=== PATIENT | female | born 1940 | race Caucasian/White ===

== ENCOUNTER → 2021-01-04 | Outpatient (CLI) | payer MEDICARE | LOC: M.MRI 12:34 | PROVIDERS: ATTEND Orthopaedic Surgery | DX: M17.12 Unilateral primary osteoarthritis, left knee (principal); M94.262 Chondromalacia, left knee; R60.0 Localized edema; M25.462 Effusion, left knee ==

== ENCOUNTER → 2021-01-24 | Outpatient (CLI) | payer MEDICARE ==
[~2021-01-24] MED LIST: MAPAP500 MG PO; NEURONTIN 400M400 M2 PO; PROTONIX40 M2 PO; TRAMADOL 50 MG50 MG PO; VITAMIN B12-FO1 EAC1 PO; XARELTO20 MG PO
[2021-01-24 16:49] LABS: HEMATOCRIT 41.2 % (37.0-47.0); HEMOGLOBIN 13.3 gm/dL (12.0-15.0); MCH 29.2 pg (26.0-34.0); MCHC 32.4 g/dL (28.0-37.0); MCV 90.2 fL (80.0-100.0); RBC 4.56 mil/uL (4.20-5.00); RDW-CV 15.8 % (10.5-14.5); WBC 8.8 thou/uL (4.0-11.0)
[2021-01-24 16:54] LABS: URINE BILIRUBIN NEGATIVE (Negative); URINE BLOOD NEGATIVE (Negative); URINE CLARITY CLEAR; URINE COLOR YELLOW; URINE GLUCOSE-RANDOM NEGATIVE (Negative); URINE KETONES NEGATIVE (Negative); URINE LEUKOCYTES-REFLEX TRACE (Negative); URINE PROTEIN NEGATIVE (Negative); URINE UROBILINOGEN 0.2 E.U./dl (0.2-1.0)
[2021-01-24 16:57] LABS: URINE NITRITE-REFLEX POSITIVE (Negative)
[2021-01-24 17:00] LABS: BACTERIA-REFLEX >30 Many /HPF (None Seen); MUCUS None Seen strn/LPF (None Seen); SQUAMOUS 0-3 Few /LPF (0-3); URINE WBC-REFLEX 6-15 Few /HPF (0-5); WBC CLUMPS Few (None Seen)
[2021-01-24 17:01] LABS: ALBUMIN 3.8 g/dL (3.4-5.0); CREATININE 1.2 mg/dL (0.6-1.3); POTASSIUM 4.4 mmol/L (3.5-5.1); TOTAL BILIRUBIN 0.4 mg/dL (<0.1-1.0)
[2021-01-24 17:01] LABS: CASTS None Seen /LPF (None Seen); CRYSTALS None Seen /LPF (None Seen); URINE RBC None Seen /HPF (0-2)
[2021-01-24 17:05] LABS: PROTIME 11.1 Seconds (9.20-11.50)
--- NOTE | 2021-01-25 12:45 | EKG ---
[place] [address] ELECTROCARDIOGRAM REPORT Name: CLAUDINE CARRILLO Room: [facility]#: [id number] Admission: 01/24/21 Attend Phys: Bryan Harris, Discharge: Date of : 36 Date of Service: 01/24/21 1626 Report #: [id number] THIS REPORT FOR: //name// [facility] Test Date: 2021-01-24 Test Time: 16:26:35 Pat Name: CLAUDINE CARRILLO Department: Room: Gender: [place]: [place] : 1940 Requested By: Bryan Harris Order Number: [id number] Reading MD: Jay Santo Measurements Intervals [place] Rate: 60 P: 70 LA: 184 QRS: -53 QRSD: 123 T: 7 QT: 434 QTc: 434 Interpretive Statements Sinus rhythm Atrial premature complex Nonspecific IVCD with LAD Left ventricular hypertrophy Anterior Q waves, possibly due to LVH No previous ECG available for comparison Electronically Signed On 01-25-2021 12:45:10 CDT by Jay Santo [email or web address] <ELECTRONICALLY SIGNED> By: Jay Santo MD, [facility] 01/25/21 1245 1626 1626 Jay Santo MD, [facility] /EPI
== END ==
LOC: M.LAB 01-23 12:10
PROVIDERS: ATTEND Orthopaedic Surgery
DX: Z01.812 Encounter for preprocedural laboratory examination (principal); Z20.822 Contact with and (suspected) exposure to COVID-19; M17.12 Unilateral primary osteoarthritis, left knee; I49.9 Cardiac arrhythmia, unspecified

== ENCOUNTER 2021-01-30 06:52 | Inpatient (IN) | payer MEDICARE ==
[~2021-01-30] VITALS: Ht 172.7 cm; Wt 88.5 kg
[2021-01-30 08:04] VITALS: BP 155/60
[2021-01-30 16:31] VITALS: BP 138/71
--- NOTE | 2021-01-30 16:51 | NUR ---
PT A&OX4 VSS. PT ARRIVED ON UNIT APPROX 1140 PT ON 3L O2 BY NC WITH CONTINUOUS PULSE OX POST-OP. NEGRON CATHETER PLACED WHILE PT SEDATED IN OR, ORDERS FROM PHYSICIAN TO LEAVE NEGRON IN PLACE UNTIL 02/21. DRESSING TO L KNEE C/D/I. POLAR PACK IN PLACE. PT STATES THINGS ARE GOING MUCH BETTER THAN SHE EXPECTED. PAIN IS MANAGED. PT DENIES N/V. FAMILY UPDATED AT BEDSIDE. PT RESTS IN BED WITH CALL LIGHT IN REACH, WILL CONTINUE TO MONITOR.
[2021-01-30 19:53] VITALS: BP 121/53
[2021-01-31] VITALS (8 sets, daily range): BP systolic 120–191; BP diastolic 62–82
[2021-01-31 03:53] LABS: CREATININE 1.3 mg/dL (0.6-1.3); POTASSIUM 4.4 mmol/L (3.5-5.1)
[2021-01-31 04:43] LABS: HEMATOCRIT 34.8 % (37.0-47.0); HEMOGLOBIN 11.5 gm/dL (12.0-15.0); MCHC 33.1 g/dL (28.0-37.0); MCV 90.7 fL (80.0-100.0); MPV 7.5 fl. (7.2-11.1); RBC 3.83 mil/uL (4.20-5.00); RDW-CV 15.7 % (10.5-14.5)
--- NOTE | 2021-01-31 04:59 | NUR ---
PT USED CPM AT BEGINNING OF SHIFT. SHE NEVER ONCE REQUESTED ANY PAIN MEDICATION. DOING VERY WELL WITH RECOVERY. RECEIVED MEDS/FLUIDS SCHEDULED. SLEPT THROUGH THE NIGHT WELL, NEGRON CLEAR YELLOW OUTPUT. ALERT AND ORIENTED, 3L-NC.
--- NOTE | 2021-01-31 10:00 | NUR ---
PT STATES SHE HAS NOT HAD A BOWEL MOVEMENT IN 2 DAYS. ABDOMEN IS SOFT. BOWEL SOUNDS PRESENT. PT STATES SHE IS NOT PASSING FLATUS YET. ENCOURAGED FLUIDS. OFFERED PRN MEDICATION TO AID WITH BOWEL MOVEMENT. STATES SHE DOES NOT WANT TO TAKE THAT MEDICATION AT THIS TIME. DOES NOT WANT TO "HAVE TO RUN TO THE BATHROOM" OR HAVE LOOSE STOOLS. WILL CONTINUE TO MONITOR.
--- NOTE | 2021-01-31 11:46 | NUR ---
Pt is A&O. Resides at home alone. Has a walker that she can use for mobility. Supportive niece and sister. No hx of HH or SNF. Plan is for Pt [place] [facility] [place] [facility] [place], CM faxed initial referral, await therapy evals and will fax. Anticipate dc tomorrow. Updated niece
--- NOTE | 2021-01-31 12:15 | NUR ---
HEMAVAC REMOVED FROM LEFT LEG. MULIPLE ABD PADS PLACED. PRESSURE HELD FOR 5 MINUTES. DRAIN TUBE CAME OUT INTACT. BRUISE AT SITE NOTED. PT INFORMED TO ALSO HELP HOLD PRESSURE AND BLEEDING TIME COULD BE PROLONGED DUE TO ANTICOAGULANTS. STATES UNDERSTANDING. WILL CONTINUE TO MONITOR.
--- NOTE | 2021-01-31 17:12 | NUR ---
PT ALERT AND ORIENTED. STATES SHE DOESN'T HAVE MUCH SHORT TERM MEMORY SHE USED TO AND CAN FORGET THINGS EASILY. PT HAS SCOPOLOMINE PATCH BEHIND LEFT EAR. PT WALKED TO THE DOOR WITH PHYSICAL THERAPY. PT ALSO WORKED WITH OT. PT NEEDS 2 PERSON STANDBY ASSIST WITH GAIT BELT. PT NEEDS MORE ASSISTANCE IN THE AM. REPORTS SHE IS WEAKER IN THE AM. PT GIVEN PRN BP MEDICATION THIS AM. VSS. PT HAD A VISITOR TODAY AND WAS TALKING ON HER PHONE. LEFT KNEE DRESSING C/D/I FROM HEMAVAC REMOVAL. IV REMAINS S/L. PT GIVEN PRN ZOFRAN. NO EMESIS NOTED. PT TOLERATING PO INTAKE WELL. PT SAT UP IN CHAIR MOST OF THE DAY. POLAR PACK REMAINS IN PLACE. PT REPORTS CONSTAND PAIN IN LEFT KNEE. BLOCK HAS WORN OFF AND STATES SHE IS FEELING EVERYTHING. PT REPORTS PAIN GETS UP TO A 10 WHEN MOVING. WILL CONTINUE TO MONITOR.
[2021-02-01 04:24] LABS: HEMATOCRIT 33.4 % (37.0-47.0); HEMOGLOBIN 11.3 gm/dL (12.0-15.0); MCH 30.9 pg (26.0-34.0); MPV 7.5 fl. (7.2-11.1); RBC 3.67 mil/uL (4.20-5.00); RDW-CV 15.6 % (10.5-14.5); WBC 9.4 thou/uL (4.0-11.0)
[2021-02-01 04:32] LABS: CALCIUM 8.5 mg/dL (8.5-10.1); CREATININE 1.2 mg/dL (0.6-1.3); POTASSIUM 4.7 mmol/L (3.5-5.1)
--- NOTE | 2021-02-01 05:18 | NUR ---
PT A&O, FORGETFUL AT TIMES. VSS ON RA. MEDS GIVEN ORDERED. PT UP WITH MODERATE ASSIST. PAIN MANAGED WITH TRAMADOL AND OXY IR. DRESSING TO LT KNEE INTACT. NEGRON IN PLACE. CALL LIGHT WITHIN REACH. BED ALARM ON FOR SAFETY. WILL CONTINUE TO MONITOR.
[2021-02-01 07:10] VITALS: BP 137/63
--- NOTE | 2021-02-01 12:41 | NUR ---
Await [facility] decision to accept today, vs tomorrow. Therapies to see. Monitor pain control.
[2021-02-01 15:25] VITALS: BP 111/46
--- NOTE | 2021-02-01 18:24 | NUR ---
PT ALERT AND ORIENTED, BUT FORGETFUL. PT HAD MULTIPLE VISITORS TODAY. REINFORCED EDUCATION ABOUT D/C TOMORROW, PLAN OF CARE, AND PAIN MANAGEMENT. PT WORKED WITH THERAPY TODAY. WALKEED TO THE DOOR WITH GAIT BELT AND WALKER. IS USE ENCOURAGED. PT REPORTS THIS EVENING PAIN HAS BEEN BETTER MANAGED AND IS LESS SITTING IN THE CHAIR. FALL PRECAUTIONS REMAIN IN PLACE. WILL CONTINUE TO MONITOR. TRANSPORTATION SET UP FOR TOMORROW @ 11 AM TO [facility].
[2021-02-01 19:37] VITALS: BP 115/52
[2021-02-01 23:50] VITALS: BP 137/64
[2021-02-02 03:56] VITALS: BP 108/45
--- NOTE | 2021-02-02 04:07 | NUR ---
PATIENT HAS REMAINED ALERT AND ORIENTED X 4 BUT SLIGHTLY FORGETFUL. UP IN CHAIR UNTIL HS. SBA BACK TO BED. CPM TOLERATED X 2 HOURS AT -5-80 DEGREES. OF THIS WRITING PAIN MEDICATIONS X 1 GIVEN TO GOOD EFFECT. BP STABLE BUT SOFT. LOW-GRADE TEMPERATURE. TYLENOL PROVIDED X 1. ORAL FLUIDS ENCOURAGED WITH URINE OUTPUT BORDERLINE PER NEGRON CATHETER (PLACED PRIOR TO SURGERY FOR EXISTING URINARY RETENTION). FALL PRECAUTIONS IN PLACE. CONTINUE TO MONITOR.
[2021-02-02 07:00] VITALS: BP 120/43
--- NOTE | 2021-02-02 07:32 | OP ---
[facility] [address] [place] [address] OPERATIVE REPORT Name: CLAUDINE CARRILLO Room: [address] M.R.#: [id number] Admission: 01/30/21 Attend Phys: Jan Alonso Discharge: Date of : 36 Report #: [id number] THIS REPORT FOR: cc: Sonia Krueger MD, Sarah N. MD Greiner, Robert F. II DO ~ DATE OF SERVICE: 01/30/2021 PREOPERATIVE DIAGNOSIS: Left knee osteoarthritis. POSTOPERATIVE DIAGNOSIS: Left knee osteoarthritis. PROCEDURE: Left total knee arthroplasty. SURGEON: Bryan Harris II, DO E M ASSEMBLER: None. ANESTHESIA: Per operative record. ESTIMATED BLOOD LOSS: 50 mL. ANTIBIOTICS: Per operative record. DRAINS: None. COMPLICATIONS: None. DRAINS: Medium Hemovac. COMPLICATIONS: None. CONDITION: The patient is stable to recovery room. BRIEF HISTORY: The patient was seen in the preoperative area. Preoperative H and P was performed. Site was marked, questions were answered. Risks and benefits were discussed with the patient in detail about surgery. The patient wished to proceed, assuming all risks. DESCRIPTION OF PROCEDURE: The patient was taken to the operative suite and placed supine on the operating table, given appropriate anesthesia. The patient's left knee had a well-padded tourniquet applied to the upper thigh which was inflated to 300 mmHg after gravity exsanguination for the duration of the procedure. The left knee was sterilely prepped and draped. Surgery began by midline incision. This was carried down to the subcutaneous tissues. A [facility] [address] [place] [address] OPERATIVE REPORT Name: CLAUDINE CARRILLO Room: [address] [facility].#: [id number] Admission: 01/30/21 Attend Phys: Jan Alonso Discharge: Date of : 36 Report #: [id number] medial parapatellar arthrotomy was performed and carried down to the bone. Patella was then everted and excess soft tissue removed from around the femur. Femoral cutting block was then applied, checked with a drop nilson for rotational alignment, pinned in appropriate position and appropriate cuts were made. A 4-in-1 cutting block was then applied, checked for rotational alignment, pinned in appropriate position and appropriate cuts were made. Excess bone was removed. Attention was then turned to the tibia. Retractor was placed on collateral ligaments. Tibial cutting block was then applied, checked with a drop nilson for rotational alignment and slope and appropriate cut was made. Tibial bone was removed. Tibial base plate was then applied, checked with drop nilson for rotational alignment, pinned in appropriate position. Femur was then applied and box cut was reamed. This was then trialed with the appropriate spacer, which showed excellent fit and fill and excellent stability of the knee through all range of motion. Patella was then reamed in appropriate fashion and sized to appropriate size with three peg holes drilled. This was then trialed with flexion and extension and showed excellent tracking of the patella with excellent flexion and extension of the knee. These trials were then removed. Tibia was punched in appropriate fashion. Bone ends were cleansed with Pulsavac irrigation and cement was mixed and applied to final implants. These were then malleted into position and held the knee in extension and compressed to allow cement to cure. After it cured, excess was removed using [place] and osteotome. A final irrigation was performed. Final spacer was then selected and malleted in position. Knee was once again taken through range of motion and showed excellent flexion, extension, excellent tracking of the patella within the groove. Tourniquet was deflated. Hemostasis was maintained with electrocautery. Pain cocktails were injected. Capsule was closed with a #2 FiberWire in the capsule and 1 Vicryl in [id number] fashion. Skin was closed with 2-0 Vicryl and running Monocryl stitch. Dermabond, sterile dressing and PolarCare applied. The patient transported to recovery room in stable condition. Counts were correct throughout the procedure. <ELECTRONICALLY SIGNED> By: Bryan Harris II, DO 02/02/21 0732 0028 [id number] Harris II, DO /nt
--- NOTE | 2021-02-02 09:28 | NUR ---
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 Faxed dc orders and [id number] form. Left VM for Pt's niece regarding dispo. Chart copied. Nurse report number provided. [facility] p:[phone]
--- NOTE | 2021-02-02 11:39 | NUR ---
CHART COPIED. REPORT CALLED TO FACILIOTY. PT BELONGINGS GATHERED. PT LEFT VIA WHEELCHAIR WITH TRANSPORTER TO FACILITY. IV REMOVED. FALL RISK PRECAUTIONS IN PLACE. HOURLY ROUNDING COMPLETED.
== END 2021-02-02 11:40 | DRG 470 ==
LOC: M.TBA 06:52 → M.ORTHSURG 06:52
PROVIDERS: Family Medicine; Orthopaedic Surgery; ADMIT Internal Medicine; ATTEND Internal Medicine
PROC: 3E0T3BZ Introduction of Anesthetic Agent into Peripheral Nerves and Plexi, Percutaneous Approach (ICD-10-PCS; principal; 2021-01-30)
PROC: 0SRD0J9 Replacement of Left Knee Joint with Synthetic Substitute, Cemented, Open Approach (ICD-10-PCS; principal; 2021-01-30)
DX: M17.12 Unilateral primary osteoarthritis, left knee (principal); K21.9 Gastro-esophageal reflux disease without esophagitis; R33.9 Retention of urine, unspecified; E66.9 Obesity, unspecified; I10 Essential (primary) hypertension; G89.29 Other chronic pain; Z68.29 Body mass index [BMI] 29.0-29.9, adult; Z86.718 Personal history of other venous thrombosis and embolism; Z79.01 Long term (current) use of anticoagulants